=== PATIENT | male | born 1990 | race African-American/Black ===

== ENCOUNTER 2020-05-14 16:53 | Emergency (ER) | payer OTHER ==
[~2020-05-14] VITALS: Ht 172.7 cm; Wt 79.4 kg
--- NOTE | 2020-05-14 17:00 | NUR ---
pt refused v/s check. aware.
--- NOTE | 2020-05-14 17:25 | NUR ---
Patient discharged in custody in stable condition. Written and verbal after care instructions given. Patient verbalizes understanding of instruction.
== END 2020-05-14 17:26 ==
LOC: ER 16:55
DX: Z02.89 Encounter for other administrative examinations (principal)

== ENCOUNTER → 2024-01-01 | Emergency (ER) | payer MEDICAID, OTHER ==
[~2024-01-01] VITALS: Ht 172.7 cm; Wt 79.4 kg
[2024-01-01 23:44] VITALS: BP 122/78; TEMP 98; O2SAT 98
== END | disposition home or self-care (01) ==
LOC: ER 21:30
DX: R46.2 Strange and inexplicable behavior (principal)

== ENCOUNTER 2025-02-06 11:56 | Inpatient (IN) | payer MEDICAID ==
[~2025-02-06] VITALS: Ht 172.7 cm; Wt 122.5 kg
--- NOTE | 2025-02-06 12:00 | NUR ---
Sitter at bedside
[2025-02-06] MEDS ORDERED: OLANZAPINE 10 MG VIAL IM ONE (12:09)
[2025-02-06] MEDS ORDERED: LORAZEPAM INJ 2 MG/ML VIAL ONE (12:10)
[2025-02-06] MEDS: OLANZAPINE 10 MG VIAL IM ONE (12:13)
[2025-02-06] MEDS: LORAZEPAM INJ 2 MG/ML VIAL IM ONE (12:13)
--- NOTE | 2025-02-06 12:16 | NUR ---
LAB AT BEDSIDE FOR BLOOD CULTURES
[2025-02-06 12:33] LABS: PLATELET COUNT (AUTO) 421 K/uL (150-450); RED BLOOD CELL COUNT(AUTO) 4.52 MIL/uL (4.5-6.0); RED CELL DISTRIBUTION WIDTH 13.6 % (11.5-15.0); WHITE BLOOD COUNT (AUTO) 14.0 K/uL (4.3-11.0)
--- NOTE | 2025-02-06 12:44 | NUR ---
Urine sent to lab
[2025-02-06 12:53] LABS: CALCIUM, SERUM 10.4 mg/dL (8.5-10.1); CREATININE 1.7 mg/dL (0.6-1.3); SODIUM SERUM 146 mmol/L (136-145); UREA NITROGEN, BLOOD 23 mg/dL (7-18)
[2025-02-06 12:56] LABS: INR 1.05 (0.91-1.10)
[2025-02-06] MEDS ORDERED: LEVOFLOXACIN 750 MG /D5W 150ML 150 ML IV ONE (12:56)
[2025-02-06 13:00] LABS: ASPARTATE AMINOTRANSFERASE 69 U/L (15-37); LACTIC ACID 7.0 mmol/L (0.4-2.0); TOTAL PROTEIN, SERUM 8.4 g/dL (6.4-8.2)
[2025-02-06 13:01] LABS: ALCOHOL, BLOOD < 3 mg/dL (0-10)
[2025-02-06] MEDS: LEVOFLOXACIN 750 MG /D5W 150ML 150 ML IV ONE (13:10)
--- NOTE | 2025-02-06 13:15 | NUR ---
COVID, FLU, AND MRSA SWABS COLLECTED AND SENT
[2025-02-06] MEDS: IV NS 0.9% 1,000 ML BAG IV ONE (13:20)
[2025-02-06 13:21] LABS: APPEARANCE,URINE CLEAR (CLEAR); BLOOD, URINE NEGATIVE Ery/uL (NEGATIVE); LEUKOCYTE ESTERASE ,URINE NEGATIVE (NEGATIVE); NITRITE, URINE NEGATIVE (NEGATIVE); UGLUCOSE NEGATIVE (NEGATIVE)
[2025-02-06 13:28] LABS: BARBITURATE, URINE NEGATIVE (NEGATIVE); BENZODIAZEPINE, URINE NEGATIVE (NEGATIVE); CANNABINOID, URINE NEGATIVE (NEGATIVE); COCCAINE, URINE NEGATIVE (NEGATIVE); OPIATE, URINE NEGATIVE (NEGATIVE)
[2025-02-06 13:29] LABS: AMPHETAMINE, URINE POSITIVE (NEGATIVE)
[2025-02-06 13:30] LABS: ADD URINE CULTURE NO; SQUAMOUS EPITHELIAL CELL,UR 0-2 /HPF (None Seen)
[2025-02-06 13:31] LABS: HYALINE CASTS, URINE Few /LPF (None Seen)
[2025-02-06] MEDS ORDERED: Z GUARD REMEDY 4 OZ OINT TP PRN (14:00)
[2025-02-06] MEDS ORDERED: MAG HYDROX/AL HYDROX/SIMETH 30 ML UDC PO PRN (14:00)
[2025-02-06] MEDS ORDERED: ONDANSETRON HCL/PF 4 MG/2 ML VIAL IVP PRN (14:00)
[2025-02-06] MEDS ORDERED: ACETAMINOPHEN 325 MG TABLET PO PRN (14:00)
[2025-02-06] MEDS ORDERED: OLANZAPINE 10 MG VIAL IM PRN (14:00)
[2025-02-06] MEDS ORDERED: MAGNESIUM HYDROXIDE 30 ML UDC PO PRN (14:00)
--- NOTE | 2025-02-06 15:15 | NUR ---
Patient going to 115 tele
--- NOTE | 2025-02-06 15:15 | NUR ---
Report given to Obdulio BOUCHER
--- NOTE | 2025-02-06 15:40 | NUR ---
RN NOTE RECEIVED REPORT FROM CITLALY CERVANTES FROM ER. PATIENT ARRIVED TO UNIT, LETHARGIC AND SLEEPING, AROUSES EASILY TO LIGHT TOUCH. PATIENT SAFELY PLACED IN BED.
[2025-02-06 16:00] VITALS: BP 140/72; TEMP 98.8; O2SAT 97
[2025-02-06] MEDS: IV NS 0.9% 1,000 ML IV PRN (17:01)
--- NOTE | 2025-02-06 18:56 | NUR ---
RN NOTE - CLOSING NOTE PATIENT IS IN BED, ASLEEP, AROUSES TO DEEP TOUCH THEN FALLS BACK ASLEEP. PATIENT IS ALERT AND ORIENTED X2. PATIENT IS ON ROOM AIR, NO SHORTNESS OF BREATH, NO RESPIRATORY DISTRESS, BREATHING IS EVEN AND UNLABORED. PATIENT HAS IV ACCESS TO LEFT ANTECUBITAL GAUGE #18 RUNNING NS AT 150ML/HR. PATIENT IS ON TELE MONITORING, CURRENTLY HAVING SINUS TACHYCARDIA FROM 125-135 HR. SAFETY PRECAUTIONS IN PLACE, BED IN LOWEST POSITION AND LOCKED, SIDE RAILS UP X3, HEAD OF BED ELEVATED TO SEMI-FOWLERS POSITION, CALL LIGHT WITHIN REACH. PATIENT HAS A 1:1 BEDSIDE SITTER AT THIS TIME. ENDORSED TO NEXT SHIFT RN REGARDING ONGOING PLAN OF CARE.
[2025-02-06 20:00] VITALS: BP 125/66; TEMP 98.6; O2SAT 98
--- NOTE | 2025-02-06 20:00 | NUR ---
LACING OPERATOR NOTE PT IN BED LETHARGIC. ON RA. NO SOB, ON DISTRESS OR DISCOMFORT NOTED. NO S/S OF PAIN NOTED. ON TELE ST HR 130. NS INFUSING AT 150 ML/HR AT LAC #18G. NO S/S OF INFILTRATION NOTED. KEPT HIM DRY AND CLEAN. ALL NEEDS ATTENDED. VSS. CONTINUE TO MONITOR HIM. SITTER AT BED SIDE.
[2025-02-07] VITALS: BP 121/76; TEMP 99.1; O2SAT 99
[2025-02-07 04:00] VITALS: BP 133/81; TEMP 98.5; O2SAT 97
[2025-02-07 07:24] LABS: PLATELET COUNT (AUTO) 290 K/uL (150-450); RED BLOOD CELL COUNT(AUTO) 4.03 MIL/uL (4.5-6.0); RED CELL DISTRIBUTION WIDTH 13.7 % (11.5-15.0); WHITE BLOOD COUNT (AUTO) 6.3 K/uL (4.3-11.0)
--- NOTE | 2025-02-07 07:39 | NUR ---
RN OPENING NOTE PATIENT RECEIVED IN BED, ASLEEP. EASY TO AROUSE WITH NAME. ON RA. NO SOB, ON DISTRESS OR DISCOMFORT NOTED. NO S/S OF PAIN NOTED. ON TELE ST HR 105. IV RUNNING NS ON LAC #18G. NO S/S OF INFILTRATION NOTED. SAFETY MEASURES IN PLACE. BED ALARM ON. BED IN THE LOWEST POSITION. LOCKED. 2X SIDE RAILS UP. SITTER AT BED SIDE.
[2025-02-07 07:51] LABS: CALCIUM, SERUM 8.4 mg/dL (8.5-10.1); CREATININE 1.0 mg/dL (0.6-1.3); PHOSPHORUS 3.1 mg/dL (2.5-4.9); SODIUM SERUM 143.0 mmol/L (136-145); UREA NITROGEN, BLOOD 18.0 mg/dL (7-18)
[2025-02-07] MEDS: PANTOPRAZOLE 40 MG VIAL IV SCH (08:47)
[2025-02-07] MEDS: QUETIAPINE FUMARATE 25 MG TABLET PO ONE (09:00)
[2025-02-07] MEDS: POTASSIUM CHLORIDE 20 MEQ TAB.PRT.SR PO ONE (09:36)
--- NOTE | 2025-02-07 09:44 | NUR ---
PATIENT AWAKE ALERT ,DC INSTRUCTION GIVEN,BELONGINGS RETURN BACK TO PATIENT.IV REMOVED.AMBULATORY .
[2025-02-07 10:17] LABS: CREATINE KINASE, TOTAL 2430.0 U/L (39-308)
== END 2025-02-07 09:50 | disposition home or self-care (01) | DRG 812 ==
LOC: ER 12:17 → TELE1 14:57 → MEDSG1 02-07 09:07
PROVIDERS: ADMIT Nurse Practitioner Acute Care; ATTEND Nurse Practitioner Acute Care
DX: T43.651A Poisoning by methamphetamines accidental (unintentional), initial encounter (principal); N17.0 Acute kidney failure with tubular necrosis; G92.8 Other toxic encephalopathy; F15.159 Other stimulant abuse with stimulant-induced psychotic disorder, unspecified; M62.82 Rhabdomyolysis; Y92.89 Other specified places as the place of occurrence of the external cause; E86.0 Dehydration; E87.20 Acidosis, unspecified; F12.10 Cannabis abuse, uncomplicated; Z78.1 Physical restraint status; E87.6 Hypokalemia; D72.829 Elevated white blood cell count, unspecified
CPT/HCPCS: 36415; 71045-TC; 80048-TC; 80076-TC; 81001; 82550-TC; 82553; 83605-TC; 83735-TC; 84100-TC; 85025-TC; 85730-TC; 87040-TC; 87081-TC; 87086-TC; G0378; G0480; J1956; J2060; J2470; J3490; J7030